=== PATIENT | male | born 1990 | race Caucasian/White ===

== ENCOUNTER → 2021-08-14 10:37 | Outpatient (BNVA) | payer OTHER, SELFPAY | PROVIDERS: Visit Provider Internal Medicine | DX: S40.212A Abrasion of left shoulder, initial encounter (principal); S80.211A Abrasion, right knee, initial encounter; W12.XXXA Fall on and from scaffolding, initial encounter; M25.461 Effusion, right knee | CPT/HCPCS: 73030; 73564; 99204 ==

== ENCOUNTER → 2021-08-19 13:49 | Outpatient (BNVA) | payer OTHER, SELFPAY | PROVIDERS: Visit Provider Physician Assistant | DX: M25.512 Pain in left shoulder (principal); S83.91XA Sprain of unspecified site of right knee, initial encounter; W18.30XA Fall on same level, unspecified, initial encounter | CPT/HCPCS: 99213 ==